=== PATIENT | female | born 1960 | race Caucasian/White ===

== ENCOUNTER 2016-10-06 20:21 | Emergency (ER) | payer OTHER ==
[~2016-10-06] VITALS: Ht 160 cm; Wt 81.6 kg
[~2016-10-06 20:21] MED LIST: AMARYL1 MG PO; ASPIRIN EC81 M1 PO; COZAAR 50MG TAB50 MG PO; FLEXERIL10 MG PO; LOPRESSOR100 MG PO; LOPRESSOR50 MG PO; METFORMIN1000 MG PO; TESSALON PERLE100 MG PO; TRAZODONE50 MG PO; ULTRAM(MONOGRAP50 MG PO; ZITHROMAX Z-PA250 M1 PO; ZOLOFT 100 MG100 MG PO; ZOLOFT25 MG PO
[2016-10-06 21:07] LABS: ABSOLUTE BASOPHIL COUNT 0 /CUMM (0.0-0.2); ABSOLUTE EOSINOPHIL COUNT 0.2 /CUMM (0.0-0.7); ABSOLUTE GRANULOCYTE CT 4.7 /CUMM (1.4-6.5); ABSOLUTE LYMPH COUNT 3.7 /CUMM (1.2-3.4); ABSOLUTE MONOCYTE COUNT 0.6 /CUMM (0.10-0.60); BASOPHIL % 0.2 % (0.0-2.0); EOSINOPHIL % 1.8 % (0-5); GRANULOCYTE % 51.1 % (42.2-75.2); MEAN CORPUSCULAR HGB 29.8 PG (27.0-31.0); MEAN CORPUSCULAR VOLUME 87.7 FL (81.0-99.0); MEAN PLATELET VOLUME 9.4 FL (7.4-10.4); PLATELET COUNT 207 /CUMM (130-400); RBC DISTRIBUTION WIDTH 13.5 % (11.5-14.5); WHITE BLOOD CELL COUNT 9.2 /CUMM (4.8-10.8)
[2016-10-06] MEDS ORDERED: CRESTOR40 M2 PO (21:07)
[2016-10-06] MEDS ORDERED: EFFIENT10 M1 PO (21:07)
[2016-10-06] MEDS ORDERED: METOPROLOL TART25 M1 PO (21:07)
[2016-10-06] MEDS ORDERED: SERTRALINE HCL100 MG PO (21:07)
[2016-10-06] MEDS ORDERED: METFORMIN HCL1000 M1 PO (21:07)
[2016-10-06] MEDS ORDERED: LOSARTAN POTASS25 M1 PO (21:07)
[2016-10-06] MEDS ORDERED: NOVOLOG FL100 UNIT/1 SC (21:08)
[2016-10-06] MEDS ORDERED: JANUVIA100 M1 PO (21:08)
[2016-10-06] MEDS ORDERED: LEVEMIR FL100 UNIT/1 SC (21:08)
[2016-10-06] MEDS ORDERED: TRAZODONE HCL50 M1 PO (21:09)
[2016-10-06] MEDS ORDERED: NIASPAN500 M1 PO (21:09)
--- NOTE | 2016-10-06 21:09 | ED HEADACHE COMPLAINT ---
History of Present Illness General Chief Complaint: Facial or Head Injury Stated Complaint: HEADACHE Source: patient, family, old records, EMS Exam Limitations: no limitations Vital Signs & Intake/Output Vital Signs & Intake/Output Vital Signs Date Time Temp Pulse Resp B/P Pulse O2 O2 Flow FiO2 Ox Delivery Rate 10/065 170/62 10/06 2024 97.9 66 20 206/70 99 Room Air Allergies Coded Allergies: gemfibrozil (THROAT CLOSED 10/06/16) Reconcile Medications Aspirin (Ecotrin*) 81 MG TABLET.DR 1 TAB PO DAILY HEART/BLOOD (Reported) Glimepiride (Amaryl) (Unknown Strength) TAB 2 MG PO DAILY DIABETES (Reported) Insulin Aspart, Recombinant (Novolog Flexpen) 100 UNIT/ML INSULN.PEN DM ( Reported) Insulin Detemir (Levemir Flextouch) 100 UNIT/ML (3 ML) INSULN.PEN 54 UNITS SC QHS DM (Reported) Losartan (Cozaar) (Unknown Strength) TAB 12.5 MG PO DAILY HTN (Reported) Losartan Potassium 25 MG TABLET 1 TAB PO DAILY BP (Reported) METFORMIN HCL (Metformin) 1,000 MG TABLET 1 TAB PO BID DM2 (Reported) Metformin HCl 1,000 MG TABLET 1 TAB PO BID DM (Reported) Metoprolol Tartrate (Lopressor) 50 MG TAB 1 TAB PO BID HTN (Reported) Metoprolol Tartrate 25 MG TABLET 1 TAB PO BID HEART/BP (Reported) Niacin (Niaspan) 500 MG TAB.ER.24H 1 TAB PO QPM CHOLESTEROL (Reported) Prasugrel HCl (Effient) 10 MG TABLET 1 TAB PO DAILY HEART (Reported) Rosuvastatin Calcium (Crestor) 40 MG TABLET 1 TAB PO DAILY CHOLESTEROL ( Reported) Sertraline (Zoloft 100 MG Tab) 100 MG TABLET 1 TAB PO DAILY DEPRESSION ( Reported) Sertraline HCl 100 MG TABLET 1 TAB PO DAILY MENTAL HEALTH (Reported) Sitagliptin Phosphate (Januvia) 100 MG TABLET 1 TAB PO DAILY DM (Reported) Tramadol HCl (Ultram) 50 MG TABLET 1-2 TAB PO 4 TIMES/DAY PRN PAIN [id number].... THIRTY TABS TRAZODONE HCL (Trazodone HCl) 50 MG TABLET 1 TAB PO QPM SLEEP (Reported) Trazodone HCl 50 MG TABLET 1 TAB PO QPM SLEEP/MENTAL HEALTH (Reported) Triage Note: BIBA FROM [facility] [place] FOR HEADACHE. PT GOT INTO ARGUMENT AT HOME, GOT VERY UPSET THEN STARTED HAVING SEVERE HEADACHE AND REDNESS ABOVE EYES. [facility] [place] REPORTS PT HAD A FACIAL DROOP. UPON EMS ARRIVAL TO [facility] [place] [facility] IN, PT HAD NO FACIAL DROOP. PT PRESENTS TO ED A+OX4, MILDLY ANXIOUS. NIHSS 0. NO OBVIOUS NEURO DEFICITS AT THIS TIME Triage Nurses Notes Reviewed? yes Onset: Afternoon Duration: hour(s):, constant, continues in ED Timing: recent history Quality/Severity: severe, constant, pressure, throbbing Head Injury Location: frontal Modifying Factors: Worsens With: other (emotions). Associated Symptoms: confusion, weakness LMP (ages 10-50): post menopausal : No Patient currently breastfeeds: No HPI: Several hours prior to admission patient had disagreement with [employer] concerning her truck. She became very frustrated and angry developing headache facial flushing and confusion. She was seen at an urgent care center and felt she had a facial droop. EMS was called and no facial droop is appreciated. She presents with continued headache and photophobia. She denies fever chills nausea vomiting diarrhea abdominal pain chest pain shortness of breath dysuria rash bleeding. Past History Medical History Any Pertinent Medical History? 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 No Review of Systems Review of Systems Constitutional: Reports: see HPI, weakness. Eyes: Reports: no symptoms. Ears, Nose, Throat, Mouth: Reports: no symptoms. Respiratory: Reports: no symptoms. Cardiovascular: Reports: no symptoms. Gastrointestinal/Abdominal: Reports: no symptoms. Genitourinary: Reports: no symptoms. Musculoskeletal: Reports: no symptoms. Skin: Reports: no symptoms. Neurological/Psychological: Reports: see HPI, anxiety, confusion, emotional problems, headache. Hematologic/Endocrine: Reports: no symptoms. Endocrine: Reports: no symptoms. Immunologic/Allergic: Reports: no symptoms. All Other Systems: Reviewed and Negative Physical Exam Physical Exam General Appearance: well developed/nourished, alert, awake, anxious, moderate distress, obese Head: atraumatic, facial flushing especially over upper eyelids Eyes: Bilateral: normal appearance, PERRL, EOMI. Ears, Nose, Throat: normal pharynx, normal ENT inspection Neck: normal inspection, supple, full range of motion, trachea midline, no midline tenderness Respiratory: normal breath sounds, chest non-tender, no respiratory distress, quiet respiration, lungs clear Cardiovascular: regular rate/rhythm, normal peripheral pulses, norml femoral pulses equa Gastrointestinal: normal bowel sounds, soft, non-tender, no organomegaly Back: normal inspection, normal range of motion Extremities: normal inspection, normal capillary refill, normal range of motion, no edema Psychiatric: awake, alert, oriented x 3 Cranial Nerves: normal hearing, normal speech, PERRL Coordination/Gait: normal finger to nose, normal gait Motor/Sensory: no motor/sensory deficits Reflexes: 2+: bicep (R), bicep (L). Skin: intact, facial flushing Lymphatic: no anterior cervical carlyn Core Measures Severe Sepsis Present: No Septic Shock Present: No Progress Differential Diagnosis: intracranial Hem., tension RAMIREZ Plan of Care: Orders Procedure Date/time Status MAGNESIUM 10/06 2046 Complete COMPREHENSIVE METABOLIC PANEL 10/06 2046 Complete CBC WITHOUT DIFFERENTIAL 10/06 2046 Complete Current Medications Sig/Rod Start time Last Medication Dose Stop Time Status Admin Diazepam 5 MG ONCE ONE 10/06 2144 UNVr (Valium) 10/06 2145 Labetalol HCl 10 MG ONCE ONE 10/06 2099 CAN (Trandate) 10/06 2100 Laboratory Tests 10/06/162057: Anion Gap 11, Estimated GFR > 60, BUN/Creatinine Ratio 21.4, Glucose 274 H, Calcium 10.2, Magnesium 1.5 L, Total Bilirubin 0.4, AST 21, ALT 43, Alkaline Phosphatase 65, Total Protein 7.7, Albumin 4.6, Globulin 3.1, Albumin/Globulin Ratio 1.5, CBC w Diff NO MAN DIFF REQ, RBC 4.90, MCV 87.7, MCH 29.8, RDW 13.5, MPV 9.4, Gran % 51.1, Lymphocytes % 40.3, Monocytes % 6.6, Eosinophils % 1.8, Basophils % 0.2, Absolute Granulocytes 4.7, Absolute Lymphocytes 3.7 H, Absolute Monocytes 0.6, Absolute Eosinophils 0.2, Absolute Basophils 0, PUBS MCHC 34.0 Diagnostic Imaging: Viewed by Me: CT Scan. Discussed w/RAD: CT Scan. Radiology Impression: no acute abnormality Departure Departure Time of Disposition: 2148 Disposition: HOME OR SELF CARE Condition: Stable Clinical Impression Primary Impression: Headache, tension-type Qualifiers: Headache chronicity pattern: acute headache Intractability: not intractable Qualified Code: G44.209 - Tension-type headache, unspecified, not intractable Referrals: [facility] (PCP/Family) Departure Forms: Customer Survey General Discharge Information Prescriptions: Current Visit Scripts Diazepam (Valium) 1-2 TAB PO Q6P PRN anxiety #15 TAB
--- NOTE | 2016-10-06 21:36 | CT SCAN REPORT ---
EXAMINATION: CT HEAD WITHOUT CONTRAST CLINICAL INFORMATION: Intracranial hemorrhage. Headache. Hypertension COMPARISON: None. TECHNIQUE: Multidetector CT examination of the head is performed without contrast. DLP: 601 mGy-cm FINDINGS: There is no evidence of a recent intracranial hemorrhage or extra-axial collection. The midline structures are nondisplaced. The ventricles, cisterns, and sulci are within normal limits. There is no evidence of an intra-axial mass. There are no suspicious focal areas of abnormal brain attenuation. The mckeon-white interface is within normal limits. There is no evidence of acute territorial infarct. Minimal thickening of the left maxillary and ethmoid air cells. There is some atherosclerotic calcification of the cavernous carotids. IMPRESSION: 1. There is no evidence of a recent intracranial hemorrhage. 2. No acute infarct.
[2016-10-06] MEDS ORDERED: VALIUM5 M2 PO (21:51)
[2016-10-06 22:14] VITALS: BP 122/64
== END 2016-10-06 22:15 ==
LOC: ERH 20:21
PROVIDERS: Emergency Medicine
DX: G44.209 Tension-type headache, unspecified, not intractable (principal)
CPT/HCPCS: 96374; J3360